=== PATIENT | female | born 1935 | race Caucasian/White ===

== ENCOUNTER 2017-12-26 10:33 | Inpatient (IN) | payer OTHER ==
[~2017-12-26] VITALS: Ht 152.4 cm; Wt 96.8 kg
[2017-12-26 10:41] VITALS: BP 153/66
[2017-12-26 10:57] LABS: ABSOLUTE LYMPHOCYTES 1.4 thou/uL (0.8-5.3); ABSOLUTE MONOCYTES 0.4 thou/uL (0.0-1.2); ABSOLUTE NEUTROPHILS 3.2 thou/uL (1.6-8.1); BASOPHILS 0.4 %; EOSINOPHILS 0.3 %; HEMATOCRIT 36.3 % (37.0-47.0); HEMOGLOBIN 12.1 gm/dL (12.0-15.0); LYMPHOCYTES 27.9 %; MCH 32.2 pg (26.0-34.0); MCHC 33.2 g/dL (28.0-37.0); MCV 97.1 fL (80.0-100.0); MONOCYTES 7.2 %; MPV 8.3 fl. (7.2-11.1); NUCLEATED RBCS 0 /100WBC; PLATELET COUNT* 175 thou/uL (150-400); POLYS 64.2 %; RBC 3.74 mil/uL (4.20-5.00); RDW-CV 16.1 % (10.5-14.5)
[2017-12-26 11:06] LABS: ANION GAP 9 mmol/L (7-16); BUN 21 mg/dL (7-18); CHLORIDE 102 mmol/L (98-107); CO2 28 mmol/L (21-32); CREATININE 1.3 mg/dL (0.6-1.3); GLUCOSE 115 mg/dL (70-99); POTASSIUM 4.2 mmol/L (3.5-5.1); SODIUM 139 mmol/L (136-145)
[2017-12-26 11:07] LABS: APTT 33.1 Seconds (25.0-31.3); INR 1.2; PROTIME 11.5 Seconds (9.20-11.50)
[2017-12-26] MEDS ORDERED: SINEMET 25-1001 EAC1 PO (11:08)
[2017-12-26] MEDS ORDERED: NEURONTIN 300300 M1 PO (11:08)
[2017-12-26] MEDS ORDERED: PIOGLITAZONE15 MG (11:08)
[2017-12-26] MEDS ORDERED: KEPPRA 500 MG500 M1 PO (11:09)
[2017-12-26] MEDS ORDERED: KEPPRA250 MG PO (11:09)
[2017-12-26] MEDS ORDERED: REQUIP XL4 MG PO (11:09)
[2017-12-26] MEDS ORDERED: LASIX 20 MG TAB20 MG PO (11:10)
[2017-12-26] MEDS ORDERED: LIPITOR40 MG PO (11:10)
[2017-12-26] MEDS ORDERED: LEVOXYL50 MCG PO (11:10)
[2017-12-26 11:20] LABS: ALBUMIN 3.7 g/dL (3.4-5.0); ALKALINE PHOSPHATASE 71 U/L (46-116); NT-PRO BRAIN NAT PEPTIDE 597 pg/mL (<300); SGOT 24 U/L (15-37); SGPT 15 U/L (30-65); TOTAL PROTEIN 7.9 g/dL (6.4-8.2); TROPONIN-I LEVEL <0.06 ng/mL (<0.06)
[2017-12-26] MEDS ORDERED: VASOTEC 2.5MG2.5 M1 PO (11:20)
[2017-12-26 13:09] VITALS: BP 128/49
[2017-12-26 13:39] VITALS: BP 115/67
[2017-12-26 15:44] VITALS: BP 120/63
--- NOTE | 2017-12-26 16:09 | 2DMMODE ---
[place] [address] 2 D/M-MODE ECHOCARDIOGRAM Name: BRITTNI HERNÁNDEZ Room: [address] IN [facility]#: [id number] Admission: 12/26/17 Attend Phys: Ramon Ibrahim, Discharge: Date of : 31 Date of Service: 12/26/17 1609 Report #: [id number] THIS REPORT FOR: //name// APPROVED REPORT Study performed: 12/26/2017 15:16:26 EXAM: Comprehensive 2D, Doppler, and color-flow Echocardiogram Patient Location: In-Patient Room #: [facility] Status: routine BSA: 1.87 HR: 71 bpm BP: 115/67 mmHg Rhythm: NSR Other Information Study Quality: Fair Indications Murmur 2D Dimensions IVSd: 9.65 (7-11mm) LVOT Diam: 18.63 (18-24mm) LVDd: 46.88 mm PWd: 9.57 (7-11mm) Ascending Ao: 27.64 (22-36mm) LVDs: 21.96 (25-40mm) Aortic Root: 29.15 mm Volumes Left Atrial Volume (Systole) LA ESV Index: 29.10 mL/m2 Aortic Valve AoV Peak Odilon.: 1.97 m/s AO Peak Gr.: 15.58 mmHg LVOT Max P.81 mmHg AO Mean Gr.: 8.23 mmHg LVOT Mean P.71 mmHg LVOT Max V: 1.64 m/s AO V2 VTI: 38.70 cm LVOT Mean V: 0.98 m/s YASMINE (VTI): 2.63 cm2 LVOT V1 VTI: 37.31 cm Mitral Valve E/A Ratio: 0.74 MV Decel. Time: 273.50 ms MV E Max Odilon.: 0.96 m/[place] [address] 2 D/M-MODE ECHOCARDIOGRAM Name: BRITTNI HERNÁNDEZ Room: [address] IN ..#: [id number] Admission: 12/26/17 Attend Phys: Ramon Ibrahim, Discharge: Date of : 31 Date of Service: 12/26/17 1609 Report #: [id number] MV PHT: 79.31 ms MVA (PHT): 2.77 cm2 TDI E/Lateral E': 7.38 E/Medial E': 8.00 Medial E' Odilon.: 0.12 m/s Lateral E' Odilon.: 0.13 m/s Pulmonary Valve PV Peak Odilon.: 1.58 m/s PV Peak Gr.: 10.02 mmHg Tricuspid Valve RAP Estimate: 5.00 mmHg TR Peak Gr.: 33.14 mmHg RVSP: 38.14 mmHg PA Pressure: 38.14 mmHg Left Ventricle The left ventricle is normal size. There is normal LV segmental wall motion. There is normal left ventricular wall thickness. Left ventricular systolic function is normal. The left ventricular ejection fraction is within the normal range. LVEF is 60-65%. Grade I - abnormal relaxation pattern. Right Ventricle The right ventricle is normal size. The right ventricular systolic function is normal. Atria The left atrium size is normal. The right atrium size is normal. Aortic Valve The aortic valve is normal in structure. No aortic regurgitation is present. There is no aortic valvular stenosis. Mitral Valve The mitral valve is normal in structure. Trace mitral regurgitation. No evidence of mitral valve stenosis. Tricuspid Valve The tricuspid valve is normal in structure. Trace tricuspid regurgitaton estimated pa pressure 45 mm Hg Pulmonic Valve Pulmonic valve is not well visualized. There is no [place]mon[place] [address] 2 D/M-MODE ECHOCARDIOGRAM Name: BRITTNI HERNÁNDEZ Room: [address] IN [facility]#: [id number] Admission: 12/26/17 Attend Phys: Ramon Ibrahim, Discharge: Date of : 31 Date of Service: 12/26/17 1609 Report #: [id number] Great Vessels The aortic root is normal in size. IVC is normal in size and collapses with >50% inspiration Pericardium There is no pericardial effusion. <Conclusion> LVEF is 60-65%. Trace tricuspid regurgitaton estimated pa pressure 45 mm Hg <ELECTRONICALLY SIGNED> By: Ronald Johnson MD, [facility] 12/26/17 1609 1609 1609 Ronald Johnson MD, FACC /INF
--- NOTE | 2017-12-26 16:24 | EKG ---
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 Teacher: Fausto STEVEN : 1935 Requested By: Jakob Reina Order Number: [id number] MD: Ronald Johnson Measurements Intervals [place] Rate: 63 P: CO: QRS: -20 QRSD: 110 T: 15 QT: 438 QTc: 449 Interpretive Statements sinus rhythm Borderline left axis deviation Low voltage, extremity and precordial leads artifact noted Electronically Signed On 12-26-2017 16:24:47 CDT by Ronald Johnson [email or web address] <ELECTRONICALLY SIGNED> By: Ronald Johnson MD, [facility] 12/26/17 1624 1052 105 Ronald Johnson MD, [facility] /EPI
--- NOTE | 2017-12-26 16:31 | NUR ---
PT.RESTING IN BED/COMFORTABLE. DAUGHTER,LUIS MANUEL AT BEDSIDE,D-I-L AND [facility] WELL. PT.SAID SHE [place] [address] SHE CAN WALK TO THE DINING ROOM WITH HER ROLLATOR WALKER WHEN SHE IS FEELING GOOD. LATELY SHE HASN'T GONE BECAUSE SHE HASN'T FELT GOOD. SHE IS INDEPENDENT WITH BATHING AND DRESSING. SHE DOES NOT DRIVE. HER SON OR OTHER CHILDREN TAKE HER TO APPTS OR ERRANDS. SHE HAS AN ADVNACE DIRECTIVE AT HOME BUT NOT SURE OF WHERE IT IS. PT.SAID SHE HAS A CPAP ON ORDER BUT NOT SURE WHICH CO.IT IS COMING FROM. QUESTIONED FURTHER AND SHE SAID HER PCP ORDERED IT. LEFT VM ON NURSE LINE AT DR.BRUCE SANTILLAN OFFICE REGARDING CPAP AND ASKED FOR RETURN CALL.
--- NOTE | 2017-12-26 18:25 | NUR ---
PATIENT REMAINED ALERT AND ORIENTED X'S 4. VITAL SIGNS AND SPO2 STABLE. IV CLEAN, FLUIDS INFUSING. NPO. PATIENT DENIES PAIN AT THE MOMENT. ORIENTED PATIENT TO ROOM, CALL LIGHT, TV. COMPLETED ADMISSION ASSESSMENT AND HISTORY. COMPLETED HOURLY ROUNDING. CALL LIGHT WITHIN REACH. WILL CONTINUE TO MONITOR.
[2017-12-27 00:25] VITALS: BP 96/45
[2017-12-27 05:00] LABS: HEMATOCRIT 36.2 % (37.0-47.0); HEMOGLOBIN 11.7 gm/dL (12.0-15.0); MCH 32.5 pg (26.0-34.0); MCHC 32.2 g/dL (28.0-37.0); MPV 9.1 fl. (7.2-11.1); RBC 3.58 mil/uL (4.20-5.00); RDW-CV 16.6 % (10.5-14.5); WBC 6.1 thou/uL (4.0-11.0)
[2017-12-27 05:45] LABS: ALBUMIN 2.6 g/dL (3.4-5.0); CALCIUM 8.5 mg/dL (8.5-10.1); CREATININE 1.2 mg/dL (0.6-1.3); MAGNESIUM 1.5 mg/dL (1.8-2.4); POTASSIUM 3.7 mmol/L (3.5-5.1); TOTAL BILIRUBIN 0.7 mg/dL (<0.1-1.0); TOTAL PROTEIN 5.9 g/dL (6.4-8.2)
[2017-12-27 05:50] VITALS: BP 112/49
--- NOTE | 2017-12-27 06:00 | NUR ---
PT HAS SLEPT SOUNDLY SINCE MIDNIGHT, AWAKENED BRIEFLY FOR MEDS WITH SIP OF WATER AND BACK TO SLEEP. O2 2L OVERNIGHT PER FAMILY REQUEST SAT 99% THIS MORNING. BP SOFT OVERNIGHT, BP MED HELD THIS MORNING. LAC NS INFUSING PER PUMP. HAS BEEN NPO EXCEPT FOR SIPS WITH MEDS THIS SHIFT. UP WITH WALKER AND SBA TO BR TO VOID OVERNIGHT. SCDS IN PLACE, BED ALARM ON FOR SAFETY. GI TO SEE PT AND EVALUATE FOR NEED FOR SURGERY.DNR. CALL LITE IN EASY REACH.
[2017-12-27 08:00] VITALS: BP 116/62
[2017-12-27 16:07] VITALS: BP 131/48
--- NOTE | 2017-12-27 18:21 | NUR ---
ASSUMED CARE THIS AM, NO DISTRESS NOTED, HYDRA SCAN COMPLETED, NO RESULTS NOTED, ADVANCE TO CLD, DEBORAH IVF AND MEDS WELL, AWAITING GI CONFIRMATION FOR SURGICAL VS NONSURG INTERVENTION, ASYMPTOMATIC AT PRESENT, CALL LIGHT IN REACH, CONT POC.
[2017-12-28] VITALS: BP 99/38
[2017-12-28 04:06] LABS: HEMOGLOBIN 10.6 gm/dL (12.0-15.0); MCH 32.7 pg (26.0-34.0); MCHC 33.1 g/dL (28.0-37.0); MCV 98.6 fL (80.0-100.0); MPV 8.6 fl. (7.2-11.1); RBC 3.25 mil/uL (4.20-5.00); RDW-CV 15.9 % (10.5-14.5); WBC 4.4 thou/uL (4.0-11.0)
[2017-12-28 04:26] LABS: ALBUMIN 2.8 g/dL (3.4-5.0); CALCIUM 8.5 mg/dL (8.5-10.1); CREATININE 1.1 mg/dL (0.6-1.3); PHOSPHORUS* 2.7 mg/dL (2.5-4.9); POTASSIUM 3.8 mmol/L (3.5-5.1); TOTAL BILIRUBIN 0.9 mg/dL (<0.1-1.0); TOTAL PROTEIN 6.2 g/dL (6.4-8.2)
--- NOTE | 2017-12-28 06:29 | NUR ---
PT SLEPT FAIRLY WELL OVERNIGHT, LAC IV. O2 2L OVERNIGHT. DENIES PAIN OR NAUSEA. UP WITH ASSIST TO VOID. AM LABS DRAWN. ABLE TO USE CALL LITE AND MAKE NEEDS KNOWN. TOLERATING CLEAR LIQUIDS WITHOUT DIFFICULTY.
[2017-12-28 08:00] VITALS: BP 122/60
--- NOTE | 2017-12-28 19:03 | NUR ---
RESUMED CARE THIS AM, A/O, DID HAVE NAUSEA WITH BREAKFAST, RETURNED TO CLD, ANTICIPATE LAP CHRISTIANO WITH IOC PER GI, DEBORAH MEDS WELL, UP TO CHAIR FOR MEALS, DENIES PAIN, CARE PLAN REVIEWED, CALL LIGHT IN REACH, CONT POC.
[2017-12-29 00:05] VITALS: BP 124/51
--- NOTE | 2017-12-29 06:04 | NUR ---
PT SLEPT FAIRLY WELL AFTER RECEIVING MELATONIN OVERNIGHT, HAS BEEN NPO SINCE MIDNIGHT ORDERED. HAS DENIED PAIN OR NAUSEA THIS SHIFT. LAC SL. UP TO BSC TO VOID WITH SBA. PT REFUSED AM LABS TO BE DRAWN DURING LAB ROUNDS BECAUSE SHE WANTED TO SLEEP BUT WILL ALLOW THEM TO BE DRAWN LATER THIS MORNING. O2 2L OVERNIGHT. SCDS ON. AWAITING PLAN FOR POSSIBLE LAP CHRISTIANO TODAY. ABLE TO USE CALL LITE AND MAKE NEEDS KNOWN.
[2017-12-29 07:34] LABS: MCH 32.9 pg (26.0-34.0); MCHC 33.5 g/dL (28.0-37.0); MCV 98.2 fL (80.0-100.0); RBC 3.36 mil/uL (4.20-5.00); WBC 5.2 thou/uL (4.0-11.0)
[2017-12-29 07:45] VITALS: BP 136/51
[2017-12-29 07:51] LABS: ALBUMIN 2.8 g/dL (3.4-5.0); CALCIUM 8.4 mg/dL (8.5-10.1); MAGNESIUM 1.8 mg/dL (1.8-2.4); PHOSPHORUS* 2.4 mg/dL (2.5-4.9); POTASSIUM 3.8 mmol/L (3.5-5.1); TOTAL BILIRUBIN 0.9 mg/dL (<0.1-1.0); TOTAL PROTEIN 6.3 g/dL (6.4-8.2)
[2017-12-29 10:50] LABS: URINE BILIRUBIN NEGATIVE (Negative); URINE BLOOD NEGATIVE (Negative); URINE CLARITY CLEAR; URINE COLOR YELLOW; URINE GLUCOSE-RANDOM NEGATIVE (Negative); URINE KETONES NEGATIVE (Negative); URINE LEUKOCYTES-REFLEX TRACE (Negative); URINE PROTEIN NEGATIVE (Negative); URINE UROBILINOGEN 0.2 E.U./dl (0.2-1.0)
[2017-12-29 10:56] LABS: URINE NITRITE-REFLEX POSITIVE (Negative)
[2017-12-29 11:14] LABS: SQUAMOUS 0-3 Few /LPF (0-3)
[2017-12-29 11:15] LABS: BACTERIA-REFLEX 1-9 Few /HPF (None Seen); CRYSTALS None Seen /LPF (None Seen); HYALINE CASTS 0-3 Few /LPF (None Seen); MUCUS None Seen strn/LPF (None Seen); URINE WBC-REFLEX 0-5 Rare /HPF (0-5)
[2017-12-29 12:49] LABS: URINE RBC None Seen /HPF (0-2)
--- NOTE | 2017-12-29 14:52 | NUR ---
Nutrition: Pt assessed for high BMI. Wt: 209#. Admitted with Nausea and abd pain. NPO after MN for possible lap aramis. Cholecystitis vs. GB dysfunction. Poor appetite w/ nausea. alb 2.8, prealb 18.3. RX: lax., clindomycin, gabapentin. Will await POC and diet advancement. Recommend goal diet to be Low Fat. Hopeful for good po intake once clinically able to advance diet. Will follow diet order, po intake/tolerance, labs. Mild risk at this time. Follow up 12/31/17.
[2017-12-29 16:44] VITALS: BP 117/46
--- NOTE | 2017-12-29 18:04 | NUR ---
ALERT AND ORIENTED X4. UP STAND BY ASSIST WITH WALKER AND GAIT BELT. TOLERATING REGULAR DIET. NPO AFTER MIDNIGHT TONIGHT. IV IS PATENT AND SALINE LOCKED. DENIES PAIN. DENIES NEED FOR NAUSEA. VSS ON ROOM AIR. HOURLY ROUNDS HAVE BEEN MAINTAINED THROUGHOUT SHIFT. CALL LIGHT IS WITHIN REACH. NURSING WILL CONTINUE TO MONITOR.
[2017-12-29 21:30] VITALS: BP 139/49
[2017-12-29 23:58] VITALS: BP 126/50
[2017-12-30 03:39] VITALS: BP 143/60
[2017-12-30 05:00] LABS: ABSOLUTE EOSINOPHILS 0.3 thou/uL (0.0-0.7); ABSOLUTE LYMPHOCYTES 1.5 thou/uL (0.8-5.3); ABSOLUTE MONOCYTES 0.5 thou/uL (0.0-1.2); ABSOLUTE NEUTROPHILS 3.3 thou/uL (1.6-8.1); BASOPHILS 0.5 %; EOSINOPHILS 5.1 %; HEMATOCRIT 30.7 % (37.0-47.0); HEMOGLOBIN 10.1 gm/dL (12.0-15.0); LYMPHOCYTES 27.1 %; MCH 32.3 pg (26.0-34.0); MCHC 32.9 g/dL (28.0-37.0); MCV 98.1 fL (80.0-100.0); MONOCYTES 9.1 %; MPV 9.2 fl. (7.2-11.1); NUCLEATED RBCS 0 /100WBC; PLATELET COUNT* 135 thou/uL (150-400); POLYS 58.2 %; RBC 3.13 mil/uL (4.20-5.00); RDW-CV 16.1 % (10.5-14.5); WBC 5.6 thou/uL (4.0-11.0)
--- NOTE | 2017-12-30 05:18 | NUR ---
PATIENT REMAINS ALERT AND ORIENTED X4 THROUGHOUT SHIFT. VITAL SIGNS STABLE ON ROOM AIR. IV PATENT IN THE LEFT AC SALINE LOCKED. MAINTAINED NPO STATUS SINCE MIDNIGHT. DENIES PAIN OR NAUSEA. TRANSFERS WITH STANDBY ASSIST TO THE RESTROOM. POSSIBLE LAP CHRISTIANO TODAY. RESTING COMFORTABLY THROUGHOUT NIGHT. REPOSITIONIN SELF IN BED. HOURLY ROUNDING COMPLETE. CALL LIGHT WITHIN REACH. NURSING WILL CONTINUE TO MONITOR.
[2017-12-30 05:38] LABS: ALBUMIN 2.7 g/dL (3.4-5.0); CALCIUM 8.8 mg/dL (8.5-10.1); CREATININE 0.9 mg/dL (0.6-1.3); POTASSIUM 3.7 mmol/L (3.5-5.1)
[2017-12-30 06:09] VITALS: BP 143/60
[2017-12-30 12:00] VITALS: BP 139/75
--- NOTE | 2017-12-30 12:43 | OP ---
[address] [address] OPERATIVE REPORT Name: BRITTNI HERNÁNDEZ Room: [address] IN .R.#: [id number] Admission: 12/26/17 Attend Phys: Ramon Ibrahim MD Discharge: Date of : 31 Report #: [id number] THIS REPORT FOR: //name// CC: Rickey Ibrahim DICTATED BY: Shekhar Whitman DO PREOPERATIVE DIAGNOSES: Cholelithiasis, biliary dyskinesia. POSTOPERATIVE DIAGNOSES: Cholelithiasis, biliary dyskinesia. PROCEDURE PERFORMED: Laparoscopic cholecystectomy. ANESTHESIA: General. SURGEON: Karen Padron DO WOOD GOUGER: Shekhar Whitman DO, PGY2. ESTIMATED BLOOD LOSS: 30. COMPLICATIONS: None. COMMENTS: Unsuccessful cannulation of the cystic duct during attempted intraoperative cholangiogram. DISPOSITION: PACU to [facility]. HISTORY OF PRESENT ILLNESS: The patient is a pleasant 82-year-old female who was admitted with several weeks of worsening appetite and nausea, some chills without any arlet fevers. She had consistent nausea associated with food, mild discomfort upon palpation of her abdomen initially. Workup included abdominal ultrasound, which revealed gallstones and a slightly dilated bile duct at 7 mm, some tenderness over the gallbladder with the ultrasound probe. HIDA scan was then performed, which revealed poor passage of contrast into the bowel, CBD, with potential obstruction and a decreased gallbladder ejection fraction of 5%. It was discussed with the patient that either if she was willing to undergo surgery as an inpatient, then laparoscopic cholecystectomy would be recommended. Risks and complications were discussed include bleeding, infection, injury to surrounding structures, risk of common bile duct injury requiring transfer to a larger tertiary facility and repair, risk of needing drain placement, risk of open procedure, risk of anesthesia and risk including cardiopulmonary failure or . The patient agreed to acknowledge her understanding of risks and complications and agreed to surgery. DESCRIPTION OF PROCEDURE: The patient was taken to the operative room, [place] [address] OPERATIVE REPORT Name: BRITTNI HERNÁNDEZ Room: [address] IN [facility].#: [id number] Admission: 12/26/17 Attend Phys: Ramon Ibrahim MD Discharge: Date of : 33 Report #: [id number] in supine position after consent was obtained, 600 mg of clindamycin were given preoperatively. SCDs were placed to bilateral lower extremities. Safety strap was placed over the patient's waist. General anesthesia was administered without any complication. The patient was then prepped and draped in the standard sterile fashion. Timeout was performed to confirm the patient and procedure. Midline vertical incision was made just above the patient's umbilicus using 11 blade scalpel. Electrocautery was used to ensure hemostasis. S retractors were used to dissect down to the level of the fascia. Fascia was then grabbed with 2 Kochers and the fascia was then scored with electrocautery. Yolis clamp was used to bluntly dissect into the abdomen. Finger was used to sweep to ensure no adhesions or abdominal contents up against the anterior abdominal wall. A 10 Hernandez trocar was then inserted into the abdomen and insufflation was initiated without complication. Camera was placed into the abdomen and intra-abdominal contents were inspected. The gallbladder could be seen just underneath the edge of the liver. It appeared to be dilated. A second 11 mm trocar was placed subxiphoid under direct visualization. Grasper was used to elevate the gallbladder. There were some adhesions to the gallbladder at this time. Two more ports were placed in the right upper quadrant under direct visualization. The gallbladder was elevated. Hook cautery was then used to dissect off the adhesions from the gallbladder. Once the gallbladder was free, [place] dissector was used to dissect out the cystic duct. At this point, a Vogel clamp was placed at the base of the gallbladder and multiple attempts were made to cannulate the cystic duct without success. At this point, intraoperative cholangiogram was aborted. The [place] dissector was then used to further dissect out the cystic duct and the cystic artery. Both the duct and the artery could be seen going up into the gallbladder. The window of safety was seen. At that point, the cystic duct was clipped twice proximally, twice distally and cut and the cystic artery was clipped distally and proximally and cut as well. A posterior branch, of what was believed to be an artery, was also clipped and cut. Hook cautery was then used to dissect the gallbladder off of the liver. Hemostasis was then ensured. The gallbladder fossa was irrigated copiously and all fluid was suctioned out. Surgicel was placed in the gallbladder fossa to ensure further hemostasis. All trocars were removed under direct visualization as insufflation was decreased to ensure hemostasis. Gallbladder was placed in the laparoscopic EndoCatch bag. Midline Hernandez trocar was removed along with the gallbladder and the bag, stones were felt in the gallbladder indicating cholelithiasis. All port sites were closed with 4-0 Monocryl. Sterile dressings were placed over top. The patient tolerated the procedure well and was awoken from anesthesia without any complication. All needle counts were correct. All instruments counts were correct. All sponge counts were correct. The patient transferred to PACU in stable condition. <ELECTRONICALLY SIGNED> By: Karen Padron DO 12/30/17 1243 0933 [id number] Padron DO /ky
--- NOTE | 2017-12-30 18:42 | NUR ---
PATINET RESTING IN BED. UP TO CHAIR WITH ASSIST X2. PAITNET IS SINUS ARRYTHMIA WITH RATES OF 45-60 BPM. 4 LAPRASCOPIC INCISIONS, CLEAN/DRY/INTACT WITH DRESSINGS IN PLACE. VITAL SIGNS STABLE. PATIENT TREATED SEVERAL TIMES FOR NAUSEA. CLEAR LIQUID DIET. HOURLY ROUNDING COMPLETD FOR PATIENT SAFETY.
[2017-12-30 20:00] VITALS: BP 126/55
[2017-12-31] VITALS: BP 146/52
[2017-12-31 04:00] VITALS: BP 124/54
--- NOTE | 2017-12-31 05:33 | NUR ---
ASSUMED PT CARE AT 1930. ASSESSMENT COMPLETED CHARTED. PT IS STIFF AND SORE THIS MORNING WITH NO C/O PAIN, IS X1 ASSIST TILL PT GAINS MORE STRENGTH. DRESSINGS ARE CLEAN AND DRY WITH SOME BRUISING NOTED AROUND GUAZE. NO HEMATOMA OR TENDERNESS NOTED. WILL CONTINUE TO MONITOR.
[2017-12-31 08:00] VITALS: BP 113/54
--- NOTE | 2017-12-31 10:52 | NUR ---
CONTINUE TO FOLLOW, MET WITH PT AND DTR/SAMUEL. DISCUSSED DC PLAN, PT IS INTERESTED IN REHAB/SNF. STATES SHE LIVES IN [place] APT AT THE [facility] AND IS CONCERNED ABOUT HOW SHE WILL MANAGE, FEELS WEAK. EXPLAINED THAT SHE WOULD NEED TO QUALIFY AND THAT THERAPY WAS ORDERED AND CM WOULD TALK WITH HER AFTER EVALS. DISCUSSED OPTIONS, SHE HAS BEEN TO [facility] BEFORE AND WANTED TO KNOW IF THERE WAS A CLOSER FACILITY. DISCUSSED AREA FACILITIES, CHOSE [facility]. WILL CHECK WITH THEM AND AWAIT THERAPY EVALS. PT AND DTR ALSO ASKED FOR ASSIST WITH GETTING HER CPAP, STATED SHE HAD A SLEEP STUDY 2 WKS AGO AND HER PCP DR SANTILLAN ORDERED A CPAP BUT WAS TOLD BY 'SOMEONE' THAT THEY WERE OUT OF NETWORK. OFFERED TO CONTACT DR SANTILLAN OFFICE, SHE WAS APPRECIATIVE OF THAT. CALL PLACED TO DR SANTILLAN, LEFT VMAIL
--- NOTE | 2017-12-31 11:16 | NUR ---
Nutrition: follow up note. Diet advanced to Heart Healthy. Pt tolerating diet. Wt stable. Albumin and prealb are trending slightly martin, 2.7 and 15.5. Pt will discharge to facility when ready for disch. Mild risk.
--- NOTE | 2017-12-31 11:25 | NUR ---
STEPHANIE EATON FAXED REFERRAL TO [facility] AT [facility].
[2017-12-31 12:00] VITALS: BP 120/53
[2017-12-31 16:00] VITALS: BP 132/55
--- NOTE | 2017-12-31 18:53 | NUR ---
RECIEVED CARE AT 1430. PATIENT A&OX4, FORGETFUL. 2L O2 VIA NC. UP WITH ASSISTX1 TO BSC. NO C/O PAIN/N/V. IV LEFT FOREARM SALINE LOCK. GALLBLADDER REMOVED YESTERDAY, 4 LAPROSCOPIC SITES, BRUISING, DRSG C/D/I. NO OTHER CONCERNS AT THIS TIME. APPROPRIATE AND COOPORATIVE WITH CARE.
[2017-12-31 20:00] VITALS: BP 115/69
[2018-01-01] VITALS: BP 135/50
[2018-01-01 04:00] VITALS: BP 114/58
[2018-01-01 08:45] VITALS: BP 108/57
[2018-01-01] MEDS ORDERED: HYDROCODON-ACE1 EAC7 PO (11:45)
--- NOTE | 2018-01-01 11:59 | NUR ---
CONTINUE TO FOLLOW, AWAIT [facility] TO GET INSURANCE AUTH FOR SNF. DISCUSSED WITH DR HA
[2018-01-01 12:17] VITALS: BP 112/52
[2018-01-01 14:00] VITALS: BP 112/52
--- NOTE | 2018-01-06 16:59 | CON ---
[address] [address] CONSULTATION Name: BRITTNI HERNÁNDEZ Room: [address] IN M.R.#: [id number] Admission: 12/26/17 Attend Phys: Ramon Ibrahim MD Discharge: 01/01/18 Date of : 31 Report #: [id number] THIS REPORT FOR: //name// CC: Rickey Ibrahim MD DATE OF SERVICE: 12/27/2017 REQUESTING PHYSICIAN: Ramon Ibrahim MD REASON FOR CONSULT: Nausea and abdominal pain. HISTORY OF PRESENT ILLNESS: This is an 82-year-old female who was brought to hospital after not feeling good since 12/24. The patient has had complained about nausea and abdominal pain. She currently denies any symptoms as she denies nausea and abdominal pain. She also denies diarrhea, constipation, hematochezia, melena, dyspepsia and GERD. She reports that she has had an upper scope a year ago, which was negative. Since admission to hospital, she has had abdominal ultrasound which showed distended gallbladder with cholelithiasis. She has a HIDA scan which is ordered, but pending. PAST MEDICAL HISTORY: Significant for history of diverticulosis, hyperlipidemia, seizure, parkinsonism, hypothyroidism, sleep apnea, morbid obesity, neuropathy. ALLERGIES AND MEDICATIONS: Please refer to hospital MAR. SOCIAL HISTORY: The patient denies tobacco or alcohol use. FAMILY HISTORY: Noncontributory. PHYSICAL EXAMINATION: VITAL SIGNS: Reveal blood pressure of 116/62, respiration 14, pulse 62, temperature 98. LUNGS: Clear. CARDIOVASCULAR: Regular. ABDOMEN: Soft, nontender, nondistended. Bowel sounds are positive. LABORATORY DATA: Reveal sodium of 140, potassium 3.7, BUN is 18, creatinine 1.2. Liver function tests are all within normal limit. Albumin is 2.6. BNP is 597. INR 1.2. WBC is 6.1 with hemoglobin of 11.7 and platelets of 124. IMAGING: [place] [address] CONSULTATION Name: BRITTNI HERNÁNDEZ Room: [address] IN [facility].#: [id number] Admission: 12/26/17 Attend Phys: Ramon Ibrahim MD Discharge: 01/01/18 Date of : 33 Report #: [id number] ASSESSMENT AND PLAN: The patient with symptoms of nausea and abdominal pain who was admitted to hospital and ultrasound suggestive of cholelithiasis with distended gallbladder. The patient currently is symptom free. We will recommend to resume diet. There is a HIDA scan, which was ordered and pending results. <ELECTRONICALLY SIGNED> By: Keturah Crook MD 01/06/18 1659 1340 0210Farid Cornel Crook MD /nt
--- NOTE | 2018-01-19 14:08 | PATH ---
[address] [address] PATHOLOGY RPT PROCEDURE Name: BRITTNI HERNÁNDEZ Room: [address] IN .R.#: [id number] Admission: 12/26/17 Date of : 31 Discharge: 01/01/18 Report #: [id number] Path Case #: [id number] [facility] Accession Number: [id number] . 01 Material submitted: . GALLBLADDER AND CONTENTS . 01 Clinical history: . Cholecystitis . 02 Diagnosis: Gallbladder: - Chronic cholecystitis and cholelithiasis. . (MICHAEL:pit; 01/01/2018) QTP/01/01/2018 . 02 Electronically signed: . Eliot Ferraro MD, Pathologist NPI- [id number] . 01 Gross description: . Received in formalin labeled "jovi Stone" and consists of a green, brown, glistening, and partially collapsed gallbladder (9.7 x 5.2 cm). The lumen contains several irregularly shaped, fragmented, and dark brown black calculi ranging in size from less than 0.1 cm to 2.0 cm, and aggregating to 3.0 x 3.0 x 2.0 cm, and 10 mL's of green brown bile. The wall averages 0.1 cm thick. The mucosa is dark brown and slightly velvety. Medical Stenographer sections are submitted as A1. (FATIMAH; 12/30/2017) JBR/JBR . 02 Pathologist provided ICD-10: K80.10 . 02 CPT . 729667 Performed at: [address], [place], [place] [id number] MD Gene Arita MD Phone: [phone] Performed at: [address] [facility] [address] [address], [place] [id number] MD Eliot Ferraro MD Phone: [phone]
== END 2018-01-01 15:28 | DRG 418 ==
LOC: M.ERS 10:33 → M.TBA-ER 12:51 → M.ORTHSURG 12:51 → M.2W 12-30 11:14
PROVIDERS: Family Medicine; Surgery; ADMIT Internal Medicine
PROC: 0FT44ZZ Resection of Gallbladder, Percutaneous Endoscopic Approach (ICD-10-PCS; principal; 2017-12-30)
PROC: BF121ZZ Fluoroscopy of Gallbladder using Low Osmolar Contrast (ICD-10-PCS; 2017-12-30)
DX: K80.10 Calculus of gallbladder with chronic cholecystitis without obstruction (principal); E44.1 Mild protein-calorie malnutrition; Z68.41 Body mass index [BMI] 40.0-44.9, adult; E66.01 Morbid (severe) obesity due to excess calories; K57.90 Diverticulosis of intestine, part unspecified, without perforation or abscess without bleeding; E78.5 Hyperlipidemia, unspecified; G20 Parkinson's disease; E03.9 Hypothyroidism, unspecified; K82.8 Other specified diseases of gallbladder; E11.40 Type 2 diabetes mellitus with diabetic neuropathy, unspecified; G25.81 Restless legs syndrome; I12.9 Hypertensive chronic kidney disease with stage 1 through stage 4 chronic kidney disease, or unspecified chronic kidney disease; G47.33 Obstructive sleep apnea (adult) (pediatric); N18.9 Chronic kidney disease, unspecified; Z66 Do not resuscitate; Z60.2 Problems related to living alone; E11.22 Type 2 diabetes mellitus with diabetic chronic kidney disease; R00.1 Bradycardia, unspecified; Z88.0 Allergy status to penicillin; Z90.710 Acquired absence of both cervix and uterus; Z90.49 Acquired absence of other specified parts of digestive tract

== ENCOUNTER 2018-01-22 06:46 | Inpatient (IN) | payer OTHER ==
[~2018-01-22] VITALS: Ht 152.4 cm; Wt 98.0 kg
--- NOTE | ~2018-01-22 | PROC ---
[address] [address] PROCEDURE REPORT Name: BRITTNI HERNÁNDEZ Room: [address] IN ..#: [id number] Admission: 01/22/18 Attend Phys: Glenny Hazel MD Discharge: Date of : 33 Report #: [id number] THIS REPORT FOR: //name// For GI report, please see the Provation report in Perceptive 7 content. By: 1104Medical Records Staff TESHA /ALDO
[~2018-01-22 06:46] MED LIST: HYDROCODON-ACE1 EAC7 PO; KEPPRA 500 MG500 M1 PO; KEPPRA250 MG PO; LASIX 20 MG TAB20 MG PO; LEVOXYL50 MCG PO; LIPITOR40 MG PO; NEURONTIN 300300 M1 PO; PIOGLITAZONE15 MG; REQUIP XL4 MG PO; SINEMET 25-1001 EAC1 PO; VASOTEC 2.5MG2.5 M1 PO
[2018-01-22 06:47] VITALS: BP 83/45
[2018-01-22 07:05] LABS: ABSOLUTE EOSINOPHILS 0.1 thou/uL (0.0-0.7); ABSOLUTE LYMPHOCYTES 0.8 thou/uL (0.8-5.3); ABSOLUTE MONOCYTES 0.2 thou/uL (0.0-1.2); ABSOLUTE NEUTROPHILS 3.7 thou/uL (1.6-8.1); BASOPHILS 0.1 %; EOSINOPHILS 1.5 %; HEMATOCRIT 28.1 % (37.0-47.0); HEMOGLOBIN 9.4 gm/dL (12.0-15.0); LYMPHOCYTES 17.3 %; MCH 31.5 pg (26.0-34.0); MCHC 33.6 g/dL (28.0-37.0); MCV 93.8 fL (80.0-100.0); MONOCYTES 4.5 %; MPV 8.4 fl. (7.2-11.1); NUCLEATED RBCS 1 /100WBC; PLATELET COUNT* 159 thou/uL (150-400); POLYS 76.6 %; RDW-CV 15.9 % (10.5-14.5); WBC 4.8 thou/uL (4.0-11.0)
[2018-01-22 07:13] LABS: CALCIUM 9.1 mg/dL (8.5-10.1); CREATININE 2.8 mg/dL (0.6-1.3); POTASSIUM 4.6 mmol/L (3.5-5.1)
[2018-01-22 07:17] LABS: ALBUMIN 3.2 g/dL (3.4-5.0); TOTAL BILIRUBIN 0.5 mg/dL (<0.1-1.0); TOTAL PROTEIN 6.9 g/dL (6.4-8.2)
[2018-01-22 08:52] LABS: URINE BILIRUBIN NEGATIVE (Negative); URINE BLOOD TRACE (Negative); URINE CLARITY CLEAR; URINE COLOR YELLOW; URINE GLUCOSE-RANDOM NEGATIVE (Negative); URINE KETONES NEGATIVE (Negative); URINE LEUKOCYTES-REFLEX 3+ (Negative); URINE NITRITE-REFLEX POSITIVE (Negative); URINE PROTEIN NEGATIVE (Negative); URINE UROBILINOGEN 0.2 E.U./dl (0.2-1.0)
[2018-01-22 09:34] LABS: SQUAMOUS 0-3 Few /LPF (0-3)
[2018-01-22 09:35] LABS: BACTERIA-REFLEX 1-9 Few /HPF (None Seen); CASTS None Seen /LPF (None Seen); CRYSTALS None Seen /LPF (None Seen); URINE RBC 0-2 Rare /HPF (0-2); URINE WBC-REFLEX >25 Many /HPF (0-5)
[2018-01-22 10:45] VITALS: BP 102/39
[2018-01-22] MEDS ORDERED: TYLENOL325 MG PO (11:27)
[2018-01-22] MEDS ORDERED: MELATONIN5 M1 PO (11:28)
[2018-01-22] MEDS ORDERED: ZOFRAN ODT4 MG DISSOLVE (11:28)
[2018-01-22] MEDS ORDERED: MIRALAX17 GM PO (11:29)
[2018-01-22] MEDS ORDERED: TRAZODONE HCL50 MG PO (11:29)
[2018-01-22] MEDS ORDERED: MILK OF MA400 MG/5 M PO (11:30)
[2018-01-22] MEDS ORDERED: BISACODYL SUPP10 MG RECTAL (11:30)
[2018-01-22 11:32] VITALS: BP 112/43
--- NOTE | 2018-01-22 11:43 | EKG ---
[place] [address] ELECTROCARDIOGRAM REPORT Name: HERNÁNDEZBRITTNI CALI Room: [address] ADM IN M.R.#: [id number] Admission: 01/22/18 Attend Phys: Glenny Hazel MD Discharge: Date of : 33 Report #: [id number] THIS REPORT FOR: //name// [facility] ED Test Date: 2018-01-22 Test Time: 07:27:19 Pat Name: BRITTNI HERNÁNDEZ Department: Room: [facility] Gender: F Certified Ophthalmic Technician: GERARDO : 1935 Requested By: Jesusita Navarro Order Number: [id number] MD: Ab Juarez Measurements Intervals [place] Rate: 66 P: PA: QRS: -2 QRSD: 117 T: 116 QT: 463 QTc: 486 Interpretive Statements Sinus rhythm Low voltage, extremity and precordial leads Compared to ECG 12/26/2017 10:52:18 no significant changes noted. Electronically Signed On 01-22-2018 11:43:25 CDT by Ab Juarez [email or web address] <ELECTRONICALLY SIGNED> By: Ab Juarez MD, [facility] 01/22/18 1143 0727 0727 Ab Juarez MD, [facility] /EPI
[2018-01-22] MEDS ORDERED: FISH OIL 1,001000 M2 PO (13:12)
[2018-01-22 16:06] VITALS: BP 105/43
[2018-01-22 20:00] VITALS: BP 111/48
[2018-01-23] VITALS (7 sets, daily range): BP systolic 100–124; BP diastolic 39–50
[2018-01-23 05:15] LABS: HEMATOCRIT 21.8 % (37.0-47.0); MCH 31.8 pg (26.0-34.0); MCHC 33.7 g/dL (28.0-37.0); MCV 94.2 fL (80.0-100.0); MPV 8.7 fl. (7.2-11.1); RBC 2.31 mil/uL (4.20-5.00); RDW-CV 15.9 % (10.5-14.5); WBC 3.8 thou/uL (4.0-11.0)
[2018-01-23 05:32] LABS: HEMOGLOBIN 7.3 gm/dL (12.0-15.0)
[2018-01-23 05:34] LABS: POTASSIUM 4.5 mmol/L (3.5-5.1)
[2018-01-24] VITALS: BP 114/45
[2018-01-24 04:00] VITALS: BP 113/46
[2018-01-24 08:00] VITALS: BP 124/67
[2018-01-24 12:02] VITALS: BP 135/56
[2018-01-24 15:29] VITALS: BP 126/63
[2018-01-24 20:00] VITALS: BP 119/49
[2018-01-25] VITALS: BP 117/43
[2018-01-25 04:29] VITALS: BP 140/51
[2018-01-25 05:14] LABS: HEMOGLOBIN 7.6 gm/dL (12.0-15.0); MCH 31.4 pg (26.0-34.0); MCV 95.1 fL (80.0-100.0); MPV 8.7 fl. (7.2-11.1); RBC 2.42 mil/uL (4.20-5.00); RDW-CV 16.1 % (10.5-14.5); WBC 4.3 thou/uL (4.0-11.0)
[2018-01-25 05:22] LABS: CALCIUM 8.5 mg/dL (8.5-10.1); CREATININE 1.6 mg/dL (0.6-1.3); MAGNESIUM 1.7 mg/dL (1.8-2.4); POTASSIUM 4.4 mmol/L (3.5-5.1)
[2018-01-25 08:30] VITALS: BP 135/49
[2018-01-25 11:49] VITALS: BP 125/41
[2018-01-25 16:18] VITALS: BP 115/40
[2018-01-25 20:00] VITALS: BP 112/45
[2018-01-26] VITALS (8 sets, daily range): BP systolic 129–146; BP diastolic 46–64
[2018-01-26 05:04] LABS: HEMATOCRIT 24.9 % (37.0-47.0); HEMOGLOBIN 8.1 gm/dL (12.0-15.0); MCH 31.2 pg (26.0-34.0); MCHC 32.5 g/dL (28.0-37.0); MCV 96.1 fL (80.0-100.0); MPV 8.8 fl. (7.2-11.1); RBC 2.59 mil/uL (4.20-5.00); WBC 5.9 thou/uL (4.0-11.0)
[2018-01-26 05:24] LABS: CALCIUM 8.5 mg/dL (8.5-10.1); CREATININE 1.5 mg/dL (0.6-1.3); MAGNESIUM 1.7 mg/dL (1.8-2.4); POTASSIUM 4.4 mmol/L (3.5-5.1)
--- NOTE | 2018-01-26 08:35 | CON ---
[address] [address] CONSULTATION Name: BRITTNI HERNÁNDEZ Room: [address] IN .R.#: [id number] Admission: 01/22/18 Attend Phys: Glenny Hazel MD Discharge: Date of : 33 Report #: [id number] THIS REPORT FOR: //name// CC: Rickey Hazel DATE OF SERVICE: 01/22/2018 HISTORY OF PRESENT ILLNESS: This is an 82-year-old female patient who was evaluated by me for altered mental status. This patient was seen yesterday, but I cannot find the dictation, so I am dictating today. I talked to the nurses today, but I was unable to see this patient because the patient was gone for multiple procedures. This patient was in the hospital recently. She had a cholecystectomy done. Then, she was sent to the [facility]. Then, she became confused. Confusion is not totally recent and it looks like it just became worse. It was a significant confusion. It was also associated with multiple other things, which included that her creatinine has become pretty high. REVIEW OF SYSTEMS: Indicate that this patient has renal failure. She has confusion. She has a cholecystectomy. She has generalized weakness. She also has a history that she was found to have seizures and she was started on Keppra. MRI could not be done because this patient had a stimulator that time that since has been removed. They are pretty reasonable certain that it has been removed. There is some question of Parkinson disease in this patient and she is taking medications for that. I carried out the 14-point review of system. It looks like this patient's memory was going down. She does have a history of hypothyroidism, morbid obesity, esophageal stricture, rheumatic fever as a child, possible Parkinson disease and neuropathy. This was her relevant 14-point review of system. She was not complaining of any new eye or ENT symptoms. She was complaining of significant GI symptoms. She was not complaining of any chest pain or any further respiratory problem and then she was not complaining of any , musculoskeletal, constitutional, dermatological, hematological, psychiatric and throat symptom. PAST MEDICAL HISTORY: Positive for GI problems and she still has it and looks like she has a urinary tract infection even if she does not have much symptoms from that. PAST MEDICAL HISTORY: Positive for seizures and possible Parkinson disease. FAMILY HISTORY: Negative for early age stroke. SOCIAL HISTORY: She does smoke. PHYSICAL EXAMINATION: NEUROLOGICAL: Indicate she is alert. She is responsive. [place] [address] CONSULTATION Name: BRITTNI HERNÁNDEZ Room: [address] IN [facility]#: [id number] Admission: 01/22/18 Attend Phys: Glenny Hazel MD Discharge: Date of : 33 Report #: [id number] but her memory and fund of knowledge is poor. She is partly oriented. Cranial nerve examination 2 through 12 is unremarkable. Neuromuscular examination as check for strength, sensation, reflexes and tone looks symmetrical. There is no cerebellar sign. There is no meningeal sign. NECK: Carotid examinations appear noncontributory. CARDIAC: Examinations appear noncontributory. LUNGS: The patient does have rhonchi on both sides. EXTREMITIES: Pulses are difficult to feel but she has no edema, cyanosis or jaundice. GENERAL: She is obese. HEENT: Her hearing and vision looks adequate. VITAL SIGNS: Blood pressure is 104/54, respirations 17, pulse is 67 and temperature is 98.4. LABORATORY DATA: Her hemoglobin is 7.3. Her sodium is 131. RADIOLOGICAL DATA: She did have a CT scan of the head, which showed chronic changes. IMPRESSION: This patient appeared to have multiple baseline neurological problem. Her present aggravation of the symptoms are most likely related to encephalopathy caused by the systemic problem, especially her renal problems and nausea and vomiting. I had discussed that aspect with the family and I had talked to them about the further workup. They wanted to proceed with the MRI since she did not have one and I think that is reasonable. So, I got the spine films done and we will set up the MRI tomorrow. RECOMMENDATIONS: 1. Continue to evaluate the patient's systemic problems. 2. Check an MRI tomorrow. 3. We will reevaluate tomorrow as we could not see today and see what else we need to do. Thank you very much for this referral. <ELECTRONICALLY SIGNED> By: Peterson Vogel MD 01/26/18 0835 1853 [id number] Vogel MD /ky
--- NOTE | 2018-01-26 11:07 | EKG ---
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 : 1935 Requested By: Leonel Waterman Order Number: [id number] Davis MD: Jeffrey Bailey Measurements Intervals [place] Rate: 38 P: ND: QRS: 5 QRSD: 114 T: 30 QT: 454 QTc: 361 Interpretive Statements Sinus bradycardia Borderline intraventricular conduction delay Low voltage, extremity and precordial leads Compared to ECG 01/22/2018 07:27:19 No significant change Electronically Signed On 01-26-2018 11:07:46 CDT by Jeffrey Bailey [email or web address] <ELECTRONICALLY SIGNED> By: Jeffrey Bailey MD, [facility] 01/26/18 1107 1144 1144 Jeffrey Bailey MD, [facility] /EPI
--- NOTE | 2018-01-26 11:07 | EKG ---
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 : 1935 Requested By: Leonel Waterman Order Number: [id number] Davis ORDONEZ: Jeffrey Bailey Measurements Intervals [place] Rate: 44 P: 44 TN: 146 QRS: -11 QRSD: 111 T: 12 QT: 455 QTc: 390 Interpretive Statements Sinus Bradycardia Low voltage, extremity and precordial leads Compared to ECG 01/22/2018 07:27:19 Sinus rate has decreased Electronically Signed On 01-26-2018 11:07:03 CDT by Jeffrey Bailey [email or web address] <ELECTRONICALLY SIGNED> By: Jeffrey Bailey MD, [facility] 01/26/18 1107 1141 1141 Jeffrey Bailey MD, [facility] /EPI
[2018-01-27] VITALS (7 sets, daily range): BP systolic 100–168; BP diastolic 58–77
--- NOTE | 2018-01-27 07:19 | CON ---
[address] [address] CONSULTATION Name: BRITTNI HERNÁNDEZ Room: [address] IN ..#: [id number] Admission: 01/22/18 Attend Phys: Glenny Hazel MD Discharge: Date of : 33 Report #: [id number] THIS REPORT FOR: //name// CC: Rickey Hazel DATE OF SERVICE: 01/26/2018 TYPE OF REPORT: Cardiology consultation. INDICATION: Bradycardia. HISTORY OF PRESENT ILLNESS: The patient is a very pleasant 82-year-old white female admitted to the hospital for mental status changes. During this hospitalization, she has been noted to be bradycardic. Telemetry monitoring shows sinus bradycardia with heart rates in the upper 20s and low 30s. She does report ongoing fatigue. She is not having chest pain. She has dyspnea on exertion and orthopnea, but no shortness of breath at rest. She has no prior cardiac history. Review of her medication list shows that she is on no rate controlling or negatively chronotropic medications. PAST MEDICAL HISTORY: 1. History of acute renal failure. 2. Cholelithiasis. 3. Nausea. 4. UTI. 5. Generalized weakness. 6. Hypothyroidism. 7. Type 2 diabetes mellitus. 8. Hypertension. 9. Sleep apnea. 10. Restless leg syndrome. 11. Esophageal stricture. 12. History of seizure disorder. 13. Neuropathy. PAST SURGICAL HISTORY: Cholecystectomy in December 2017. REVIEW OF SYSTEMS: She reports anorexia without fevers or chills. She wears glasses without acute visual change. She reports orthopnea and dyspnea, but no shortness of breath at rest. She denies chest pain, palpitations, murmur or edema. She has hypothyroidism and diabetes. She has nausea without vomiting. No melena or hematochezia. She reports some dysuria and polyuria. No history of bleeding disorder, cancer or blood clots. She has medical allergies as outlined above. She denies anxiety. She has mild depression. 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 [place] [address] CONSULTATION Name: BRITTNI HERNÁNDEZ Room: [address]#: [id number] Admission: 01/22/18 Attend Phys: Glenny Hazel MD Discharge: Date of : 33 Report #: [id number] visual change. She has decreased hearing. FAMILY HISTORY: Noncontributory. SOCIAL HISTORY: She resides in assisted care. There is no alcohol or tobacco use. HOME MEDICATIONS: Tylenol p.r.n., Lipitor 40 mg at bedtime, Dulcolax 10 mg p.r.n., Sinemet 25/100 one tablet q.i.d., fish oil 1000 mg daily, enalapril 2.5 mg daily, Lasix 20 mg daily, gabapentin 300 mg t.i.d., hydrocodone/acetaminophen 5/325 q. 4 hours p.r.n., Keppra 250 mg daily and 500 mg at bedtime, levothyroxine 50 mcg daily, milk of magnesia p.r.n., melatonin 10 mg at bedtime p.r.n., Zofran 4 mg q. 4 hours p.r.n., Actos 15 mg 3 tablets daily, MiraLax 17 grams daily, Requip XL 4 mg daily and trazodone 50 mg at bedtime. PHYSICAL EXAMINATION: VITAL SIGNS: Blood pressure 139/50 and pulse 31 and regular. GENERAL: This is an elderly female in no distress. Mood and affect appropriate. HEENT: The patient is wearing glasses. Extraocular muscles intact. Mucous membranes moist. NECK: Shows no jugular venous distention. There are no carotid bruits. CHEST: Reveals clear lung burrell. CARDIOVASCULAR: Reveals a regular rhythm that is bradycardic without gallop or murmur. ABDOMEN: Reveals normal bowel sounds. The abdomen is soft and nontender. EXTREMITIES: Shows no edema. SKIN: Warm and dry. RADIOLOGICAL DATA: A 12-lead EKG shows sinus bradycardia. IMPRESSION AND RECOMMENDATIONS: 1. Symptomatic sinus bradycardia. Recommend dual-chamber pacemaker placement. 2. Hypertension, adequately controlled on current regimen. 3. Diabetes per primary physician. 4. Hyperlipidemia. Continue atorvastatin at current dose. 5. Hypothyroidism, on replacement. TSH is within normal limits. 6. Obstructive sleep apnea per primary physician. <ELECTRONICALLY SIGNED> By: Ab Juarez MD, FACC 01/27/18 0719 1303 2222Mictheresa Juarez MD, FACC /nt
[2018-01-27 11:54] LABS: HEMOGLOBIN 8.3 gm/dL (12.0-15.0); MCH 31.3 pg (26.0-34.0); MCHC 33.1 g/dL (28.0-37.0); MCV 94.4 fL (80.0-100.0); MPV 9.3 fl. (7.2-11.1); RBC 2.65 mil/uL (4.20-5.00); RDW-CV 16.4 % (10.5-14.5); WBC 7.1 thou/uL (4.0-11.0)
--- NOTE | 2018-01-27 17:29 | EKG ---
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: : 1935 Requested By: Ab Juarez Order Number: [id number] Reading MD: Ab Juarez Measurements Intervals [place] Rate: 86 P: 0 ND: 57 QRS: -27 QRSD: 158 T: 152 QT: 433 QTc: 518 Interpretive Statements Ventricular-paced complexes No further rhythm analysis attempted due to paced rhythm Left bundle branch block Compared to ECG 01/25/2018 11:44:14 Left bundle-branch block now present Sinus bradycardia no longer present Electronically Signed On 01-27-2018 17:29:28 CDT by Ab Juarez [email or web address] <ELECTRONICALLY SIGNED> By: Ab Juarez MD, FAC 01/27/18 1729 0829 0829 Ab Juarez MD, [facility] /EPI
--- NOTE | 2018-01-27 17:29 | EKG ---
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: : 1935 Requested By: Ab Juarez Order Number: [id number] Reading MD: Ab Juarez Measurements Intervals [place] Rate: 68 P: [place]: QRS: -5 QRSD: 113 T: 18 QT: 419 QTc: 446 Interpretive Statements Sinus rhythm Low voltage, extremity and precordial leads Compared to ECG 01/25/2018 11:44:14 Sinus bradycardia no longer present Electronically Signed On 01-27-2018 17:29:20 CDT by Ab Juarez [email or web address] <ELECTRONICALLY SIGNED> By: Ab Juarez MD, [facility] 01/27/18 1729 0828 Ab Juarez MD, [facility] /EPI
--- NOTE | 2018-01-27 22:01 | CON ---
[address] [address] CONSULTATION Name: FIONA WILKINSON Room: [address] IN [facility].#: [id number] Admission: 01/22/18 Attend Phys: Glenny Hazel MD Discharge: Date of : 33 Report #: [id number] THIS REPORT FOR: //name// CC: Rickey Hazel DATE OF SERVICE: 01/25/2018 CONSULTATION: Infectious diseases. HISTORY OF PRESENT ILLNESS: Fiona Wilkinson is an 82-year-old white female who underwent laparoscopic cholecystectomy on 12/26/17. The patient had a fairly smooth postoperative course and was discharged to long-term unit. She was home for about 1 day when she again developed nausea, vomiting with decreased oral intake. She became somewhat more confused. Her family brought her back to the hospital for further evaluation and treatment. PAST MEDICAL HISTORY: Significant for hypertension, hyperlipidemia, diabetes, sleep apnea, obesity, hypothyroidism, restless legs syndrome, seizure disorder, low back pain, Parkinson's disease. ALLERGIES: The patient has an allergy to PENICILLIN. MEDICATION RECONCILIATION: Current medications include pantoprazole 40 mg b.i.d., ropinirole 1 mg t.i.d., vancomycin 500 mg twice a day, Rocephin 1 g daily, enoxaparin 30 mg at bedtime, levetiracetam 500 mg daily, atorvastatin 40 mg daily, fish oil 1000 mg daily, L-thyroxine 0.05 mg daily, Sinemet 2 tabs q.i.d., gabapentin 300 mg t.i.d., magnesium hydroxide 10 mL q. 6 hours p.r.n., bisacodyl 10 mg daily p.r.n., MiraLax 17 grams daily p.r.n., Zofran 4 mg IV p.r.n., Tylenol 650 mg q. 6 hours p.r.n., levetiracetam 250 mg p.o. daily. ALLERGIES: The patient has allergy to PENICILLIN. FAMILY HISTORY: Noncontributory. SOCIAL HISTORY: The patient does not use tobacco, alcohol nor drugs. She lives with family. REVIEW OF SYSTEMS: The patient denies fevers, chills, sweats. She notes weakness and malaise. The patient denies headache, sinus congestion, sore throat, trouble swallowing. The patient denies cough, chest pain, shortness of breath. The patient notes nausea and vomiting at home. She notes that she has not been eating well for even a month prior to the cholecystectomy and she really has not gained her appetite back yet. She is not sure if she has lost any weight. The patient denies any trouble with urination. She has a Gregorio catheter, which has been placed since coming [place] [address] CONSULTATION Name: FIONA WILKINSON Room: [address] IN [facility]#: [id number] Admission: 01/22/18 Attend Phys: Glenny Hazel MD Discharge: Date of : 33 Report #: [id number] denies any pain in her extremities. LABORATORY STUDIES: White count is 4.3. Hemoglobin has gone from 9.4 to 7.6 with hematocrit 23%, platelets gone from 159,000 to 87,000. The electrolytes are normal. BUN 19, creatinine has gone from 2.8 to 1.6. CRP is less than 2. The vancomycin trough level is 17. The blood cultures drawn on admission show Gram-positive cocci in 1 out of 2 sets. ASSESSMENT: In summary, we have a patient who has had continued gastrointestinal problems which have not really been resolved with laparoscopic cholecystectomy. She again presents with nausea, vomiting, and weakness. She is noted to have 1 out of 2 blood cultures with Gram-positive cocci. The patient does not look septic nor bacteremic. One can anticipate an 82-year-old patient 1 month postoperative with bacteremia would look rather toxic and ill. I suspect we are probably looking at a contaminated culture in a patient with poor venous access. At this time, I would like to discontinue the Rocephin. We can continue the vancomycin. We would like to obtain 2 followup blood cultures. If we are looking at 1 out of 4 blood cultures with negative Staph or diphtheroid, this could very well be a contaminant. If this is gastrointestinal strep, this could be a reflection of her gastrointestinal disease. If this is Staph aureus, this would suggest a significant pathogen. For now, I will continue vancomycin pending final identification of the positive culture and followup cultures. We will continue the gastrointestinal workup as has been ordered. <ELECTRONICALLY SIGNED> By: Jeffrey Amor MD 01/27/18 2201 02 0452Jeffrey Amor MD /nt
[2018-01-28 00:27] VITALS: BP 147/61
[2018-01-28 04:43] VITALS: BP 121/51
[2018-01-28 05:40] LABS: HEMATOCRIT 22.6 % (37.0-47.0); HEMOGLOBIN 7.5 gm/dL (12.0-15.0); MCH 31.3 pg (26.0-34.0); MCHC 33.2 g/dL (28.0-37.0); MCV 94.2 fL (80.0-100.0); MPV 9.2 fl. (7.2-11.1); RBC 2.4 mil/uL (4.20-5.00)
[2018-01-28 06:06] LABS: URINE BILIRUBIN NEGATIVE (Negative); URINE BLOOD NEGATIVE (Negative); URINE CLARITY CLEAR; URINE COLOR YELLOW; URINE GLUCOSE-RANDOM NEGATIVE (Negative); URINE KETONES TRACE (Negative); URINE LEUKOCYTES-REFLEX TRACE (Negative); URINE NITRITE-REFLEX NEGATIVE (Negative); URINE PROTEIN NEGATIVE (Negative); URINE UROBILINOGEN 0.2 E.U./dl (0.2-1.0)
[2018-01-28 06:22] LABS: BACTERIA-REFLEX 1-9 Few /HPF (None Seen); CASTS None Seen /LPF (None Seen); CRYSTALS None Seen /LPF (None Seen); MUCUS 0-3 Light strn/LPF (None Seen); SQUAMOUS 0-3 Few /LPF (0-3); URINE RBC 0-2 Rare /HPF (0-2); URINE WBC-REFLEX 0-5 Rare /HPF (0-5)
--- NOTE | 2018-01-28 07:09 | PATH ---
[address] [address] PATHOLOGY RPT PROCEDURE Name: WILKINSONFIONA Room: [address] IN ..#: [id number] Admission: 01/22/18 Date of : 33 Discharge: Report #: [id number] Path Case #: [id number] [facility] Accession Number: [id number] . 01 Material submitted: . GASTRIC BIOPSY . 01 Clinical history: . Recurrent nausea and vomiting, abdominal pain, rule out gastritis and H. Pylori . 02 Diagnosis: Gastric biopsy: - Moderate non-specific chronic antral gastritis, negative for Helicobacter pylori organisms and dysplasia. (MICHAEL/db; 01/27/18) LBQ/01/27/2018 . 02 Comment: Special stain: H. pylori immuno . 02 Electronically signed: . Eliot Ferraro MD, Pathologist NPI- [id number] . 01 Gross description: . Received in formalin labeled "Wilkinson, Fiona, gastric BX," are 4 segments of roy soft tissue measuring 1.3 x 0.6 x 0.2 cm in aggregate dimensions and ranging from 0.3 to 0.5 cm in maximum dimension. The specimen is submitted entirely in cassette A1. (TSD; 01/23/2018) TOB/TOB . 02 Pathologist provided ICD-10: K29.50 . 02 CPT . 935840, O00567 Performed at: [facility] [address], [place] [id number] MD Gene Arita MD Phone: [phone] Performed at: [address] [address] [place] [id number] MD Eliot Ferraro MD Phone: [phone]
[2018-01-28 08:00] VITALS: BP 156/78
[2018-01-28 11:09] LABS: % SATURATION 30 % (20-39); IRON 72 ug/dL (50-175)
[2018-01-28 12:00] VITALS: BP 135/47
[2018-01-28 16:00] VITALS: BP 127/51
[2018-01-28 19:30] VITALS: BP 128/53
[2018-01-29] VITALS: BP 121/59
[2018-01-29 04:31] VITALS: BP 157/68
[2018-01-29 04:58] LABS: HEMATOCRIT 23.1 % (37.0-47.0); HEMOGLOBIN 7.7 gm/dL (12.0-15.0); MCH 31.1 pg (26.0-34.0); MCHC 33.3 g/dL (28.0-37.0); MCV 93.5 fL (80.0-100.0); MPV 8.9 fl. (7.2-11.1); RBC 2.47 mil/uL (4.20-5.00); RDW-CV 15.7 % (10.5-14.5); WBC 5.4 thou/uL (4.0-11.0)
[2018-01-29 05:15] LABS: ALBUMIN 2.4 g/dL (3.4-5.0); CALCIUM 7.9 mg/dL (8.5-10.1); CREATININE 1.1 mg/dL (0.6-1.3); MAGNESIUM 1.3 mg/dL (1.8-2.4); POTASSIUM 3.5 mmol/L (3.5-5.1); TOTAL BILIRUBIN 0.8 mg/dL (<0.1-1.0); TOTAL PROTEIN 5.2 g/dL (6.4-8.2)
[2018-01-29 08:00] VITALS: BP 146/68
[2018-01-29 12:28] VITALS: BP 145/62
[2018-01-29 17:09] VITALS: BP 159/80
[2018-01-29 20:00] VITALS: BP 143/60
[2018-01-30] VITALS: BP 192/87
[2018-01-30 01:10] VITALS: BP 115/49
[2018-01-30 08:00] VITALS: BP 100/57
[2018-01-30] MEDS ORDERED: TRANSDERM-SCOP1 EACH TRANSDERM (10:12)
[2018-01-30 12:19] VITALS: BP 175/80
[2018-01-30 16:44] VITALS: BP 142/59
[2018-01-31] VITALS: BP 129/62
[2018-01-31 04:00] VITALS: BP 148/63
[2018-01-31 08:20] VITALS: BP 132/45
[2018-01-31 12:18] VITALS: BP 130/61
[2018-01-31 16:00] VITALS: BP 139/54
[2018-01-31 20:00] VITALS: BP 125/55
[2018-02-01] VITALS: BP 140/60
[2018-02-01 08:15] VITALS: BP 134/60
[2018-02-01 11:10] VITALS: BP 132/44
[2018-02-01 16:49] VITALS: BP 151/61
[2018-02-02 00:28] VITALS: BP 161/71
[2018-02-02 07:55] VITALS: BP 145/61
[2018-02-02 11:01] VITALS: BP 168/72
[2018-02-02 16:00] VITALS: BP 121/49
[2018-02-02 23:55] VITALS: BP 120/53
[2018-02-03 08:00] VITALS: BP 141/64
[2018-02-03 12:54] VITALS: BP 168/72
--- NOTE | 2018-02-03 16:28 | CARD ---
[address] [address] CARDIAC CATH REPORT Name: BRITTNI HERNÁNDEZ Juancho Room: [address]#: [id number] Admission: 01/22/18 Attend Phys: Glenny Hazel MD Discharge: 02/03/18 Date of : 33 Report #: [id number] THIS REPORT FOR: //name// APPROVED REPORT Study performed: 01/26/2018 14:06:49 Patient Status: In-Patient Room #: 213 Event Personnel: Ab Juarez Office Auditor, Ly Yeager RN Clinical Research Monitor, C[place] (Gabriela Williamson Jessica RTR Monitor Exam: Insertion of Dual Chamber Permanent Pacemaker Indications: severe symptomatic bradycardia The patient is a 82 year-old female with a history of severe symptomatic bradycardia. Conscious Sedation Start time: 14:50 End Time: 15:30 Fentanyl 25 mcg Versed 1 mg Implanted Devices: Biotronik Eluna 8 DRT ProMRI, model #604844, serial #[id number] dual-chamber pulse generator Biotronik Solia S 60, model #835311, serial #[id number] ventricular lead Biotronik Solia S 53, model #508889, serial #[id number] atrial lead Procedure The patient underwent informed consent. We discussed the details of the procedure including the risks, which include, but not limited to bleeding, infection, vascular damage, cardiac perforation, and pneumothorax. After informed consent was obtained the patient was brought to the interventional radiology lab. The area of the left chest was prepped and draped in sterile fashion. Local anesthesia was achieved with 2% lidocaine. Next after an initial incision was made over the left chest wall a device pocket was formed over the left pectoralis muscle using electrocautery and blunt dissection. The left subclavian vein was then accessed after a peripheral injection of IV contrast with a micropuncture kit. Ultimately a safety J guidewire was advanced to the level of the right atrium under fluoroscopic guidance. The safety J guidewire was externally fixed with a Yolis forcep. The micropuncture kit was utilized a second time to access the left subclavian vein and a second safety [place] [address] CARDIAC CATH REPORT Name: BRITTNI HERNÁNDEZ Room: [address]#: [id number] Admission: 01/22/18 Attend Phys: Glenny Hazel MD Discharge: 02/03/18 Date of : 33 Report #: [id number] to the right atrial region under fluoroscopic guidance. Next a 7 English tear-away introducer was advanced over the free guidewire. The dilator and guidewire were removed and a ventricular lead advanced to a secure position within the right ventricular apex. The lead was actively fixed. Thresholds were checked and deemed to be satisfactory. There was no diaphragmatic stimulation with maximum output pacing. The tear-away introducer was removed. A second 7 English tear-away introducer was advanced over the remaining guidewire. The dilator and guidewire were removed and an atrial lead advanced to the right atrial appendage under fluoroscopic guidance. The lead was actively fixed. Thresholds were checked and deemed to be satisfactory. There was no phrenic nerve stimulation with maximum output pacing. The tear-away introducer was then removed. After adequate slack was assured and the ventricular and atrial leads the leads were secured within the device pocket using the designated cuffs and interrupted stitches of 2-0 silk suture. The pocket was then flushed with antibiotic solution. Next the dual-chamber pulse generator was attached to the atrial and ventricular lead. The device generator and redundant lead were placed within the device pocket. The deep tissues were then closed using interrupted stitches of 20 absorbable suture. The skin incision was then closed with a single subcuticular stitch of 40 absorbable suture. Several Steri-Strips were placed across the incision. A sterile Telfa dressing was then covered with a Tegaderm. The patient tolerated procedure well without complication. Electrode Parameters P Wave: 1.60 mV R Wave: 5.30 mV Atrial Threshold: 1.4 V at 0.40 ms Ventricular Threshold: 1.0 V at 0.40 ms Atrial Resistance: 429 ohms Ventricular Resistance: 429 ohms Conclusion 1. Severe symptomatic bradycardia. 2. Status post dual-chamber pacemaker placement with atrial and ventricular lead placement. Recommendations 1. Follow-up site check in one week. 2. Follow-up pacemaker interrogation one month. <ELECTRONICALLY SIGNED> By: Ab Juarez MD, FACC 02/03/18 1628 1628 1628Mictheresa Juarez MD, FACC /INF
== END 2018-02-03 15:00 | DRG 871 ==
LOC: M.ERS 06:46 → M.TBA-ER 09:09 → M.2W 09:09 → M.3W 02-01 10:58
PROVIDERS: Emergency Medicine; Family Medicine; Internal Medicine Hematology & Oncology; ADMIT Internal Medicine
PROC: 0D758ZZ Dilation of Esophagus, Via Natural or Artificial Opening Endoscopic (ICD-10-PCS; principal; 2018-01-23)
PROC: 0DB68ZX Excision of Stomach, Via Natural or Artificial Opening Endoscopic, Diagnostic (ICD-10-PCS; principal; 2018-01-23)
PROC: 02H63JZ Insertion of Pacemaker Lead into Right Atrium, Percutaneous Approach (ICD-10-PCS; 2018-02-03)
PROC: 02HK3JZ Insertion of Pacemaker Lead into Right Ventricle, Percutaneous Approach (ICD-10-PCS; 2018-02-03)
PROC: 0JH606Z Insertion of Pacemaker, Dual Chamber into Chest Subcutaneous Tissue and Fascia, Open Approach (ICD-10-PCS; 2018-02-03)
DX: A41.52 Sepsis due to Pseudomonas (principal); G92 Toxic encephalopathy; N17.9 Acute kidney failure, unspecified; N39.0 Urinary tract infection, site not specified; Z68.41 Body mass index [BMI] 40.0-44.9, adult; E78.5 Hyperlipidemia, unspecified; G40.909 Epilepsy, unspecified, not intractable, without status epilepticus; R00.1 Bradycardia, unspecified; G20 Parkinson's disease; I10 Essential (primary) hypertension; G47.33 Obstructive sleep apnea (adult) (pediatric); D64.9 Anemia, unspecified; D69.6 Thrombocytopenia, unspecified; A41.81 Sepsis due to Enterococcus; G25.81 Restless legs syndrome; M51.36 Other intervertebral disc degeneration, lumbar region; R33.9 Retention of urine, unspecified; E86.0 Dehydration; M19.90 Unspecified osteoarthritis, unspecified site; K29.70 Gastritis, unspecified, without bleeding; K44.9 Diaphragmatic hernia without obstruction or gangrene; E03.9 Hypothyroidism, unspecified; K22.2 Esophageal obstruction; E11.40 Type 2 diabetes mellitus with diabetic neuropathy, unspecified; E66.01 Morbid (severe) obesity due to excess calories; Z90.710 Acquired absence of both cervix and uterus; Z90.49 Acquired absence of other specified parts of digestive tract; Z79.899 Other long term (current) drug therapy; Z88.0 Allergy status to penicillin